=== PATIENT | female | born 1995 | race Caucasian/White ===

== ENCOUNTER 2018-03-02 14:33 | Outpatient (CLI) | payer BC ==
--- NOTE | 2018-03-02 17:00 | MRI ---
MRI OF BRAIN WITH AND WITHOUT CONTRAST MRI ORBITS WITH AND WITHOUT CONTRAST 03/02/18 CLINICAL HISTORY: 23-year-old female with history of migraine headaches, seizure activity. No prior imaging comparison available. Recent onset right sided vision loss, intermittent. FINDINGS: Ventricular system is normal in size. There is no evidence of mass effect or midline shift. No acute territorial infarction or significant signal abnormality of the brain parenchyma. 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 No pathologic intra-axial enhancement. Pre and postcontrast imaging of the orbits is performed which does not reveal evidence of mass or pat hologic enhancement of either orbit. Optic nerves and extraocular muscles are symmetric in morphology . Incidental note of mild scaphocephaly. IMPRESSION: No acute intracranial abnormality. No significant orbital pathology. POS: [facility]
== END 2018-03-02 14:34 | disposition home or self-care (01) ==
LOC: SCSMRI 14:33
PROVIDERS: ATTEND Nurse Practitioner Family
DX: H53.131 Sudden visual loss, right eye (principal)
CPT/HCPCS: 70553